=== PATIENT | male | born 1975 | race Caucasian/White ===

== ENCOUNTER 2018-11-12 13:55 | Emergency (ER) | payer OTHER, SELFPAY ==
[~2018-11-12] VITALS: Ht 182.9 cm; Wt 95.5 kg
[~2018-11-12 13:55] MED LIST: COLA100C2; COLA50CA3 PO; LYRICA PO; NAPRPOW4 PO; PERC5TAB8; PERCOCET OR; TYLENOL PO
[2018-11-12 13:56] VITALS: BP 137/63
[2018-11-12] MEDS ORDERED: AMOX/K PO (14:02)
--- NOTE | 2018-11-12 14:24 | REP ---
Clinical: Trauma. Technique: Frontal view of the chest with multiple views of the left hemithorax. Findings: Frontal view of the chest demonstrates no acute cardiopulmonary process. Multiple views of the left hemithorax demonstrates no obvious acute rib fracture or pathology. Impression: Normal left rib series Electronically Signed by Porfirio Anthony MD 11/12/2018 02:16 P
[2018-11-12] MEDS ORDERED: OXYC1TAB23 PO (14:34)
[2018-11-12] MEDS ORDERED: KETOROLAC 60 MG/2 ML VIAL (J1885) IM ONE (14:45)
[2018-11-12] MEDS ORDERED: PERCOCET 5MG/325MG TAB PO ONE (14:45)
== END 2018-11-12 15:01 | disposition home or self-care (01) ==
LOC: M ED 13:55
DX: S20.222A Contusion of left back wall of thorax, initial encounter (principal); W00.0XXA Fall on same level due to ice and snow, initial encounter; Y92.89 Other specified places as the place of occurrence of the external cause
CPT/HCPCS: 71101; 94010; 96372; 99284; J1885

== ENCOUNTER → 2019-06-29 | Outpatient (REF) | payer OTHER ==
[~2019-06-29] MED LIST changes: +AMOX/K PO; +OXYC1TAB23 OR; +OXYC1TAB23 PO; -PERCOCET OR
[2019-06-29 13:12] LABS: CK-MB VALUE MASS < 1.0 NG/ML (<3.6); CPK CREATINE PHOSPHOKINASE 83 U/L (39-308); TROPONIN I < 0.02 NG/ML (< 0.10)
== END ==
LOC: M SFHCPLAZ 11:38
PROVIDERS: ATTEND Family Medicine
DX: R07.89 Other chest pain (principal)

== ENCOUNTER 2020-06-08 10:58 | Emergency (ER) | payer OTHER ==
[~2020-06-08] VITALS: Ht 188 cm; Wt 98.9 kg
[2020-06-08 10:58] VITALS: BP 122/59
[2020-06-08] MEDS ORDERED: GABA-843 PO (11:17)
[2020-06-08] MEDS ORDERED: MELO15TA28 (11:17)
[2020-06-08] MEDS ORDERED: LIDOCAINE 5% (LIDODERM) PATCH TD ONE (11:45)
[2020-06-08] MEDS ORDERED: methylPREDNISolone 125MG 2ML VIAL IM ONE (11:45)
[2020-06-08] MEDS ORDERED: ACETAMINOPHEN 500 MG TAB PO ONE (11:45)
[2020-06-08] MEDS ORDERED: LIDO5DIS41 TOP (12:16)
[2020-06-08] MEDS ORDERED: **NOTE PATIENT COMMENT** MISC XX SCH (21:00)
== END 2020-06-08 12:28 | disposition home or self-care (01) ==
LOC: M ED 10:58
DX: M54.5 Low back pain (principal); G89.29 Other chronic pain; F41.9 Anxiety disorder, unspecified; Z79.899 Other long term (current) drug therapy; Z98.890 Other specified postprocedural states
CPT/HCPCS: 96372; 99282; J2930

== ENCOUNTER → 2021-03-03 | Outpatient (REF) | payer OTHER ==
[~2021-03-03] MED LIST changes: +GABA-282 PO; +LIDO5DIS41 TOP; +MELO15TA28
== END ==
LOC: M LAB REF 16:45
PROVIDERS: ATTEND Physician Assistant
DX: M70.41 Prepatellar bursitis, right knee (principal)

== ENCOUNTER → 2021-08-21 | Outpatient (CLI) | payer OTHER ==
--- NOTE | 2021-08-21 14:37 | REPVR ---
PROCEDURE INFORMATION: Exam: CT Cervical Spine Without Contrast Exam date and time: 08/21/2021 2:08 PM Age: 46 years old Clinical indication: Pain; Cervicalgia TECHNIQUE: Imaging protocol: Computed tomography images of the cervical spine without contrast. Radiation optimization: All CT scans at this facility use at least one of these dose optimization techniques: automated exposure control; mA and/or kV adjustment per patient size (includes targeted exams where dose is matched to clinical indication); or iterative reconstruction. COMPARISON: CR Ribs uni W-PA CHEST ONLY LEFT 11/12/2018 2:10 PM FINDINGS: Bones/joints: The patient is status post C5-C6 fusion with anterior plate and screw fixation. The surgical hardware is in place and intact. There is mild reversal of the normal cervical lordosis. No acute fracture is identified. Discs/Spinal canal/Neural foramina: Moderate degenerative changes of the cervical spine are present. There is no severe spinal canal stenosis. There is mild bilateral neural foraminal narrowing at C3-C4, moderate left and mild right neural foraminal narrowing at C4-C5, moderate left neural foraminal narrowing at C5-C6, and mild right and severe left neural foraminal narrowing at C6-C7. Lungs: Lung apices are clear. Soft tissues: Unremarkable. IMPRESSION: 1. No acute abnormality. 2. Chronic findings as discussed above. Electronically signed by: Kyle Rosenberg On 08/21/2021 14:37:31 PM
== END ==
LOC: M RAD 13:54
PROVIDERS: ATTEND Nurse Practitioner Primary Care
DX: M54.2 Cervicalgia (principal); M48.02 Spinal stenosis, cervical region

== ENCOUNTER 2021-10-18 13:13 | Emergency (ER) | payer OTHER ==
[~2021-10-18] VITALS: Ht 182.9 cm; Wt 102.3 kg
[2021-10-18] MEDS ORDERED: NEOSPORIN OINT 0.9 GM PKT TOP ONE (15:35)
[2021-10-18] MEDS ORDERED: LIDOCAINE 1% MDV 20ML VIAL SC ONE (15:35)
[2021-10-18 16:29] VITALS: BP 119/62
== END 2021-10-18 16:33 | disposition home or self-care (01) ==
LOC: M ED 13:13
DX: S61.217A Laceration without foreign body of left little finger without damage to nail, initial encounter (principal); W23.0XXA Caught, crushed, jammed, or pinched between moving objects, initial encounter; Y92.018 Other place in single-family (private) house as the place of occurrence of the external cause

== ENCOUNTER → 2022-05-30 | Outpatient (CLI) | payer OTHER | LOC: M RAD 10:25 | PROVIDERS: ATTEND Physician Assistant | DX: M50.123 Cervical disc disorder at C6-C7 level with radiculopathy (principal) ==

== ENCOUNTER → 2022-08-24 | Outpatient (CLI) | payer OTHER ==
[~2022-08-24] MED LIST changes: +CEPH500C PO; +IBUP-1022 PO
== END ==
LOC: M SOG 09:34
PROVIDERS: ATTEND Physician Assistant
DX: M19.042 Primary osteoarthritis, left hand (principal)

== ENCOUNTER → 2022-08-26 | Outpatient (CLI) | payer OTHER | LOC: M LABSMTC 11:14 | PROVIDERS: ATTEND Anesthesiology | DX: Z01.812 Encounter for preprocedural laboratory examination (principal); Z20.822 Contact with and (suspected) exposure to COVID-19 ==

== ENCOUNTER 2022-08-27 07:49 | Day surgery (SDC) | payer OTHER ==
[~2022-08-27] VITALS: Ht 182.9 cm; Wt 102.1 kg
[2022-08-27] MEDS ORDERED: LR 1,000 ML IV SCH ×2 (08:10→10:55)
[2022-08-27] MEDS ORDERED: dexameTHASONE 4 MG/ML 1ML VIAL (J1100 PER 1MG) As Ordered ONE (09:23)
[2022-08-27] MEDS ORDERED: propofoL 200 MG/20 ML VIAL As Ordered ONE (09:23)
[2022-08-27] MEDS ORDERED: ONDANSETRON 4MG 2ML VIAL As Ordered ONE (09:23)
[2022-08-27] MEDS ORDERED: fentaNYL 100 MCG/2 ML INJECTION As Ordered ONE (09:25)
[2022-08-27] MEDS ORDERED: BUPIVACAINE HCL 0.25% 30ML VIAL As Ordered ONE (09:25)
[2022-08-27] MEDS ORDERED: ceFAZolin 2 GM/D5W 50 ML IV BAG (J0690 PER 500MG) As Ordered ONE (10:05)
[2022-08-27] MEDS ORDERED: BACITRACIN OINTMENT 30GM TUBE As Ordered ONE (10:31)
[2022-08-27] MEDS ORDERED: fentaNYL 100 MCG/2 ML INJECTION IV PRN (10:55)
[2022-08-27] MEDS ORDERED: HYDROMORPHONE HCL 0.5 MG/ 0.5 ML SYRINGE (J1170 PER 1) IV PRN (10:55)
[2022-08-27] MEDS ORDERED: ONDANSETRON 4MG 2ML VIAL IV PRN (10:55)
[2022-08-27] MEDS ORDERED: oxyCODONE 5MG TAB PO PRN (10:55)
[2022-08-27] MEDS ORDERED: OXYC1TAB23 PO (11:26)
[2022-08-27 12:00] VITALS: BP 118/57
== END 2022-08-27 12:21 | disposition home or self-care (01) ==
LOC: M SDC 07:49
PROVIDERS: ATTEND Orthopaedic Surgery Hand Surgery
DX: S61.012A Laceration without foreign body of left thumb without damage to nail, initial encounter (principal); S56.222A Laceration of other flexor muscle, fascia and tendon at forearm level, left arm, initial encounter; X58.XXXA Exposure to other specified factors, initial encounter
CPT/HCPCS: 11044; 25270; 93005; J0690; J1100; J2405

== ENCOUNTER → 2022-10-31 | Outpatient (CLI) | payer OTHER ==
[~2022-10-31] MED LIST changes: +MAGN250C PO; -MELO15TA28; +MELO15TA28 PO
== END ==
LOC: M LABSMTC 10:53
PROVIDERS: ATTEND Anesthesiology
DX: Z01.812 Encounter for preprocedural laboratory examination (principal); Z11.52 Encounter for screening for COVID-19

== ENCOUNTER 2022-11-03 07:10 | Day surgery (SDC) | payer OTHER ==
[~2022-11-03] VITALS: Ht 182.9 cm; Wt 100.9 kg
[~2022-11-03 07:10] MED LIST changes: +NS 1,000 ML IV ONE
[2022-11-03] MEDS ORDERED: propofoL 200 MG/20 ML VIAL As Ordered ONE (08:24)
[2022-11-03] MEDS ORDERED: LIDOCAINE 2% 100MG/5ML SDV (FOR ANES.) As Ordered ONE (08:24)
[2022-11-03 08:58] VITALS: BP 122/66
== END 2022-11-03 09:08 | disposition home or self-care (01) ==
LOC: M OPP 07:10
PROVIDERS: ATTEND Surgery
DX: Z12.11 Encounter for screening for malignant neoplasm of colon (principal); Z79.1 Long term (current) use of non-steroidal anti-inflammatories (NSAID); Z79.899 Other long term (current) drug therapy; Z99.89 Dependence on other enabling machines and devices; G47.30 Sleep apnea, unspecified; F41.9 Anxiety disorder, unspecified; Z87.891 Personal history of nicotine dependence

== ENCOUNTER → 2023-05-09 | Outpatient (CLI) | payer OTHER ==
[~2023-05-09] MED LIST changes: -NS 1,000 ML IV ONE; +SERT50TA29 PO; +TIZA10TA PO
== END ==
LOC: M SOG 10:18
PROVIDERS: ATTEND Physician Assistant
DX: M25.531 Pain in right wrist (principal)

== ENCOUNTER 2023-05-11 06:06 | Day surgery (SDC) | payer OTHER ==
[~2023-05-11] VITALS: Ht 182.9 cm; Wt 103.5 kg
[2023-05-11] MEDS ORDERED: LR 1,000 ML IV SCH ×2 (06:25→08:20)
[2023-05-11] MEDS ORDERED: LIDOCAINE 2% 100MG/5ML SDV (FOR ANES.) As Ordered ONE (07:10)
[2023-05-11] MEDS ORDERED: MIDAZOLAM INJ 2MG/2ML VIAL As Ordered ONE (07:10)
[2023-05-11] MEDS ORDERED: propofoL 200 MG/20 ML VIAL As Ordered ONE ×2 (07:10→07:43)
[2023-05-11] MEDS ORDERED: fentaNYL 100 MCG/2 ML INJECTION As Ordered ONE (07:10)
[2023-05-11] MEDS ORDERED: ONDANSETRON 4MG 2ML VIAL As Ordered ONE (07:43)
[2023-05-11] MEDS ORDERED: ACETAMINOPHEN 1000MG 100ML IV BAG As Ordered ONE (07:50)
[2023-05-11] MEDS ORDERED: fentaNYL 100 MCG/2 ML INJECTION IV PRN (08:20)
[2023-05-11] MEDS ORDERED: HYDROMORPHONE HCL 0.5 MG/ 0.5 ML SYRINGE IV PRN (08:20)
[2023-05-11] MEDS ORDERED: oxyCODONE 5MG TAB PO PRN (08:20)
[2023-05-11] MEDS ORDERED: ONDANSETRON 4MG 2ML VIAL IV PRN (08:20)
[2023-05-11 09:50] VITALS: BP 138/90; TEMP 97; O2SAT 99
== END 2023-05-11 13:47 | disposition home or self-care (01) ==
LOC: M SDC 06:06
PROVIDERS: ATTEND Orthopaedic Surgery Hand Surgery
DX: G56.01 Carpal tunnel syndrome, right upper limb (principal); G56.91 Unspecified mononeuropathy of right upper limb; G47.30 Sleep apnea, unspecified; Z79.899 Other long term (current) drug therapy
CPT/HCPCS: 29848; J0131; J1100; J2250; J2405; J3010

== ENCOUNTER 2023-07-29 14:48 | Emergency (ER) | payer OTHER ==
[~2023-07-29] VITALS: Ht 185.4 cm; Wt 102.3 kg
[2023-07-29] MEDS ORDERED: CEPHALEXIN 500 MG CAP PO ONE (18:50)
[2023-07-29] MEDS ORDERED: CEPH500C PO (19:45)
[2023-07-29] MEDS ORDERED: LIDOCAINE 1% MDV 20ML VIAL As Ordered ONE (19:49)
[2023-07-29] MEDS ORDERED: LIDOCAINE 1% MDV 20ML VIAL SC ONE (19:50)
[2023-07-29 20:05] VITALS: BP 148/89; TEMP 98.2; O2SAT 98
== END 2023-07-29 20:07 | disposition home or self-care (01) ==
LOC: M ED 14:48
DX: S61.214A Laceration without foreign body of right ring finger without damage to nail, initial encounter (principal); W25.XXXA Contact with sharp glass, initial encounter; Y92.000 Kitchen of unspecified non-institutional (private) residence as the place of occurrence of the external cause; Y93.G1 Activity, food preparation and clean up; Y99.8 Other external cause status; G47.30 Sleep apnea, unspecified; M54.9 Dorsalgia, unspecified

== ENCOUNTER → 2024-05-04 | Outpatient (CLI) | payer OTHER | LOC: M RAD 16:22 | PROVIDERS: ATTEND Family Medicine | DX: M47.892 Other spondylosis, cervical region (principal); M50.10 Cervical disc disorder with radiculopathy, unspecified cervical region ==

== ENCOUNTER 2024-10-29 05:08 | Emergency (ER) | payer OTHER ==
[~2024-10-29] VITALS: Ht 182.9 cm; Wt 105.7 kg
[~2024-10-29 05:08] MED LIST changes: +GABA-1172 PO; -GABA-282 PO
[2024-10-29] MEDS: ACETAMINOPHEN 500 MG TAB PO ONE (06:32)
[2024-10-29] MEDS: KETOROLAC 60MG 2ML VIAL IM ONE (08:07)
[2024-10-29 09:01] VITALS: BP 111/58; TEMP 97.3; O2SAT 100
== END 2024-10-29 09:12 | disposition home or self-care (01) ==
LOC: M ED 05:08
DX: S20.222A Contusion of left back wall of thorax, initial encounter (principal); W10.8XXA Fall (on) (from) other stairs and steps, initial encounter; Y92.019 Unspecified place in single-family (private) house as the place of occurrence of the external cause; Y93.9 Activity, unspecified; Y99.9 Unspecified external cause status; Z79.2 Long term (current) use of antibiotics; Z79.899 Other long term (current) drug therapy
CPT/HCPCS: 71111; 81001; 96372; 99284; J1885

== ENCOUNTER → 2025-04-05 | Outpatient (CLI) | payer OTHER ==
[~2025-04-05] MED LIST changes: +LIDO1ADH93 TOP; -LIDO5DIS41 TOP
== END ==
LOC: M RAD 08:56
PROVIDERS: ATTEND Physician Assistant
DX: K42.9 Umbilical hernia without obstruction or gangrene (principal)

== ENCOUNTER 2025-06-07 09:29 | Day surgery (SDC) | payer OTHER ==
[~2025-06-07] VITALS: Ht 182.9 cm; Wt 103.5 kg
[~2025-06-07 09:29] MED LIST changes: +ACETAMINOPHEN 1000MG/100ML IV BAG As Ordered ONE; +HYDROmorphone HCL 2 MG/ML 1 ML VIAL As Ordered ONE; +LIDOCAINE 2% 100 MG/5 ML SDV (FOR ANES.) As Ordered ONE; +ONDANSETRON 4MG 2ML VIAL As Ordered ONE; +PHEN37.511 PO; +ROCURONIUM BROMIDE 50MG/5ML VIAL As Ordered ONE; +SUGAMMADEX SODIUM 500 MG/5 ML VIAL As Ordered ONE; +calcium mag zinc PO; +dexAMETHasone 4 MG/ML 1 ML VIAL As Ordered ONE
[2025-06-07] MEDS: CelecoXIB 400 MG CAP PO ONE (09:45)
[2025-06-07] MEDS ORDERED: LR 1,000 ML IV SCH (10:20)
[2025-06-07] MEDS ORDERED: MIDAZOLAM INJ 2 MG/2 ML VIAL As Ordered ONE (10:50)
[2025-06-07] MEDS: ceFAZolin SOD 2 GM IV ONCE IV ONE (11:20)
[2025-06-07] MEDS: LIDOCAINE 1% SDV 30 ML VIAL As Ordered ONE (13:06)
[2025-06-07] MEDS ORDERED: ONDANSETRON 4MG 2ML VIAL IV PRN (13:20)
[2025-06-07] MEDS ORDERED: CELE1CAP4 PO (13:41)
[2025-06-07 14:05] VITALS: BP 127/78; TEMP 97; O2SAT 97
== END 2025-06-07 14:45 | disposition home or self-care (01) ==
LOC: M SDC 09:29
PROVIDERS: ATTEND Surgery
DX: K42.0 Umbilical hernia with obstruction, without gangrene (principal); M62.08 Separation of muscle (nontraumatic), other site; G47.33 Obstructive sleep apnea (adult) (pediatric); Z90.49 Acquired absence of other specified parts of digestive tract; Z79.899 Other long term (current) drug therapy; G62.9 Polyneuropathy, unspecified; Z98.1 Arthrodesis status; Z87.891 Personal history of nicotine dependence
CPT/HCPCS: 49594; C1781; J0131; J0665; J0666; J0690; J1100; J1171; J2250; J2405; J3010; S2900